=== PATIENT | male | born 1965 | race Caucasian/White ===

== ENCOUNTER 2017-01-02 18:09 | Emergency (ER) | payer BC, SELFPAY ==
[2017-01-02 18:21] VITALS: O2SAT 97
[2017-01-02] MEDS ORDERED: Sodium Chloride 0.9% 1000 ML 1,000 ML IV STA (18:27)
[2017-01-02] MEDS ORDERED: Zosyn INJ 4.5 GM in D5w 100ML Mini Bag 100 ML 100 ML IV ONE (18:28)
[2017-01-02] MEDS ORDERED: APRESOLINE 20 MG/ML INJ IV ONE (18:28)
--- NOTE | 2017-01-02 18:29 | ERPHSYRPT ---
- History of Present Illness Time Seen by Provider: 01/02/17 18:25 Source: patient Exam Limitations: clinical condition Patient Subjective Stated Complaint: PT REPORTS A BUG BITE ON HIS RIGHT KNEE BEGINNING A COUPLE DAYS AGO-STATES PAIN HAS GOTTEN WORSE Triage Nursing Assessment: PT PINK WARM ET [id number] WITH NO LIMP- REDNESS NOTED AROUND BITE Physician History: PATIENT WITH A HISTORY OF HYPERTENSION, COMPLAINS OF BUG BITE TO INNER ASPECT OF RIGHT KNEE, OVER THE PAST FEW DAYS NOW COMPLAINS OF REDNESS WITH SLIGHT SWELLING OVER INNER ASPECT OF KNEE. DENIES FEVER, CHILLS. Method of Injury: other (INSECT BITE) Occurred: yesterday Quality: constant, tightness Severity of Pain-Max: mild Severity of Pain-Current: mild Lower Extremities Pain: knee: right Modifying Factors: Improves With: nothing Associated Symptoms: none Allergies/Adverse Reactions: No Known Drug Allergies Allergy (Verified 01/02/17 18:21) Home Medications: Carvedilol 12.5 mg [Coreg 12.5 mg] 12.5 mg PO BID 01/02/17 [History] Lisinopril 10 mg [Zestril 10 MG] 10 mg PO DAILY 01/02/17 [History] Hx Tetanus, Diphtheria Vaccination/Date Given: No Hx Influenza Vaccination/Date Given: No Hx Pneumococcal Vaccination/Date Given: No Immunizations Up to Date: Yes - Review of Systems Constitutional: No Fever, No Chills Eyes: No Symptoms Ears, Nose, & Throat: No Symptoms Respiratory: No Cough, No Dyspnea Cardiac: No Symptoms, No Chest Pain, No Edema, No Syncope Abdominal/Gastrointestinal: No Symptoms, No Abdominal Pain, No Nausea, No Vomiting, No Diarrhea Genitourinary Symptoms: No Symptoms, No Dysuria Musculoskeletal: No Back Pain, No Neck Pain Skin: Cellulitis, No Rash Neurological: No Symptoms, No Dizziness, No Focal Weakness, No Sensory Changes Psychological: No Symptoms Endocrine: No Symptoms All Other Systems: Reviewed and Negative - Past Medical History Pertinent Past Medical History: Yes Cardiac History: Hypertension - Past Surgical History Past Surgical History: Yes Gastrointestinal: Appendectomy, Hernia Repair Other Surgical History: tonsils - Social History Smoking Status: Current every day smoker How long have you smoked: 1 pk day Exposure to second hand smoke: No Drug Use: none Patient Lives Alone: No - Nursing Vital Signs Nursing Vital Signs: Initial Vital Signs Temperature 98.7 F 01/02/17 18:19 Pulse Rate 64 01/02/17 18:19 Respiratory Rate 20 01/02/17 18:19 Blood Pressure 204/113 01/02/17 18:19 O2 Sat by Pulse Oximetry 97 01/02/17 18:19 Pain Scale Pain Intensity 2 - Physical Exam General Appearance: alert Eyes, Ears, Nose, Throat Exam: moist mucous membranes Neck Exam: non-tender, supple Cardiovascular/Respiratory Exam: chest non-tender, normal breath sounds, regular rate/rhythm, no respiratory distress Gastrointestinal/Abdominal Exam: non-tender, guarding Back Exam: normal inspection, No vertebral tenderness Knees Exam: bilateral knee: non-tender, normal inspection, normal range of motion, no evidence of injury, other (THERE IS ERYTHEMA EXTENDING DISTAL RIGHT THIGH MEDIAL ASPECT ACROSS MEDIAL ASPECT KNEE 18 CM X 6CM MINIMAL SWELLING NONFLUCTANCE) Foot Exam: bilateral foot: other (BILATERAL PEDIS PULSES 2+) Neuro/Tendon Exam: normal sensation, normal motor functions Mental Status Exam: alert, oriented x 3, cooperative Skin Exam: normal color, warm, dry SpO2 Interpretation: normal SpO2: 97 Oxygen Delivery: Room Air Ordered Tests: Active Orders 24 hr Category Date Time Status IV Insertion STAT Care 01/02/17 18:27 Active CBC W DIFF Stat Lab 01/02/17 18:35 Completed Medication Summary Generic Name Dose Route Start Last Admin Trade Name Freq PRN Reason Stop Dose Admin Sodium Chloride 1,000 mls @ 500 mls/hr 01/02/17 18:27 01/02/17 18:55 Sodium Chloride 0.9% 1000 Ml IV 01/02/17 20:26 500 mls/hr .Q2H STA Administration Discontinued Medications Generic Name Dose Route Start Last Admin Trade Name Freq PRN Reason Stop Dose Admin Hydralazine HCl 20 mg 01/02/17 18:28 01/02/17 18:55 Apresoline 20 Mg/Ml Inj IV 01/02/17 18:29 20 mg STAT ONE Administration Hydralazine HCl Confirm 01/02/17 18:42 Apresoline 20 Mg/Ml Inj Administered 01/02/17 18:43 Dose 20 mg .ROUTE .STK-MED ONE Piperacillin Sod/Tazobactam 100 mls @ 200 mls/hr 01/02/17 18:28 01/02/17 18: 55 Sod 4.5 gm/ Dextrose IV 01/02/17 18:57 200 mls/hr STAT ONE Administration Sodium Chloride Confirm 01/02/17 18:42 Sodium Chloride 0.9% 1000 Ml Administered 01/02/17 18:43 Dose 1,000 mls @ ud .ROUTE .STK-MED ONE Dextrose Confirm 01/02/17 18:43 D5w 100ml Mini Bag 100 Ml Administered 01/02/17 18:44 Dose 100 mls @ ud IV .STK-MED ONE Piperacillin Sod/Tazobactam Sod Confirm 01/02/17 18:42 Zosyn Inj Administered 01/02/17 18:43 Dose 4.5 gm IV .STK-MED ONE Lab/Rad Data: Laboratory Result Diagrams 01/02/17 18:35 Laboratory Results 01/02/17 Range/Units 18:35 WBC 6.5 (4.0-10.5) K/mm3 RBC 4.21 (4.1-5.6) M/mm3 Hgb 14.0 (12.5-18.0) gm/dl Hct 41.0 L (42-50) % MCV 97.4 (78-100) fl MCH 33.3 H (26-32) pg MCHC 34.1 (32-36) g/dl RDW 13.0 (11.5-14.0) % Plt Count 180 (150-450) K/mm3 MPV 10.7 H (6-9.5) fl Gran % 55.8 (36.0-66.0) % Lymphocytes % 31.9 (24.0-44.0) % Monocytes % 8.5 (0.0-12.0) % Eosinophils % 3.5 (0.00-5.0) % Basophils % 0.3 (0.0-0.4) % Basophils # 0.02 (0-0.4) - Progress Progress Note: 01/02/17 20:07 ADMNISTERED IV NORMAL SALINE 500ML/HR, AND AFTER 2 SETS OF BLOOD CULTURE, IV ZOSYN 4.5GM , ADMINISTERED HYDRALAZINE 20MG IV FOR BP 204/113 AND BLOOD PRESSURE IMPROVED TO BP 144/71 01/02/17 20:11 01/02/17 20:11 09/20/17 20:12 Counseled pt/family regarding: lab results, diagnosis, need for follow-up - Departure Time of Disposition: 20:30 Departure Disposition: Home Clinical Impression: CELLULITIS RIGHT KNEE 2ND INSECT BITE, hypertension, MEDICATION NONCOMPLIANCE Condition: Stable Critical Care Time: No Referrals: SERGIO PAGAN MD [Primary Care Provider] - Additional Instructions: TAKE YOUR BLOOD PRESSURE MEDICATIONS PRESCRIBED. ANTIBOTIC AUGMENTIN 875MG TWICE DAILY FOR 10 DAYS. MOTRIN 600MG EVERY 6 HOURS FOR MILD TO MODERATE PAIN. TYLENOL #3 EVERY 4 HOURS FOR SEVERE PAIN DISCOMFORT. WATCH FOR INCREASING SIGNS OF INFECTION, REDNESS, STREAKS UP THIGH, FEVER OR CHILLS. FOLLOWUP WITH YOUR FAMILY PHYSICIAN IN 5-7 DAYS. Prescriptions: Codeine Phosphate/APAP #3 [Tylenol #3 Tablet] 1 tab PO Q4H PRN PRN #10 tablet PRN Reason: Pain Ibuprofen 600 mg PO Q6H PRN PRN #20 tablet PRN Reason: Pain Amox Tr/Potass Clav. 875 mg [Augmentin 875-125 Tablet] 875 mg PO BID #20 tablet
[2017-01-02] MEDS ORDERED: Sodium Chloride 0.9% 1000 ML 1,000 ML ONE (18:42)
[2017-01-02] MEDS ORDERED: Zosyn INJ IV ONE (18:42)
[2017-01-02] MEDS ORDERED: APRESOLINE 20 MG/ML INJ ONE (18:42)
[2017-01-02 18:43] LABS: BASOPHIL % 0.3 % (0.0-0.4); Eosinophil % 3.5 % (0.00-5.0); Granulocytes % 55.8 % (36.0-66.0); Lymphocytes % 31.9 % (24.0-44.0); Mean Cell Volume 97.4 fl (78-100); Mean Corpuscular Hemoglobin 33.3 pg (26-32); Mean Platelet Volume 10.7 fl (6-9.5); Monocytes % 8.5 % (0.0-12.0); Platelet Count 180 K/mm3 (150-450); Red Blood Count 4.21 M/mm3 (4.1-5.6); White Blood Count 6.5 K/mm3 (4.0-10.5)
[2017-01-02] MEDS ORDERED: D5w 100ML Mini Bag 100 ML 100 ML IV ONE (18:43)
[2017-01-02 19:54] VITALS: BP 144/71; PULSE 72
== END 2017-01-02 21:00 | disposition home or self-care (01) ==
LOC: ED 18:09
DX: L03.115 Cellulitis of right lower limb (principal); S80.261A Insect bite (nonvenomous), right knee, initial encounter; Z91.14 Patient's other noncompliance with medication regimen
CPT/HCPCS: 36000; 36415; 85025; 96360; 96361; 96365; 96374; 99284; J0360; J2543